=== PATIENT | female | born 1955 | race Caucasian/White ===

== ENCOUNTER 2021-02-25 15:30 | Outpatient (CLI) | payer OTHER, SELFPAY | END 2021-02-25 23:59 | disposition short-term general hospital (02) | PROVIDERS: PCP Family Medicine; Referring Provider Family Medicine; Visit Provider Family Medicine | DX: N39.0 Urinary tract infection, site not specified (principal) | CPT/HCPCS: 87086 ==

== ENCOUNTER 2021-03-05 13:06 | Outpatient (CLI) | payer OTHER, SELFPAY ==
[2021-03-05 15:18] LABS: Color, Urine Yellow (Yellow)
[2021-03-05 15:19] LABS: Glucose, Dipstick NEGATIVE (Normal); Ketone-Dipstick Negative (Negative); Leukocyte Esterase-Dipstick Negative /ul (Negative); Nitrite-Dipstick Negative (Negative); Occult Blood-Urine Negative /ul (Negative); Protein-Dipstick Negative (Negative); Urine Bilirubin Dipstick Negative (Negative); Urine Clarity Clear (Clear); Urine Urobilinogen Normal (Normal); Urine pH 6.5 (5.0 - 8.0)
== END 2021-03-05 23:59 | disposition short-term general hospital (02) ==
LOC: MTLAB 13:09
PROVIDERS: PCP Family Medicine; Referring Provider Family Medicine; Visit Provider Family Medicine
DX: N39.0 Urinary tract infection, site not specified (principal)
CPT/HCPCS: 81002; 87086

== ENCOUNTER 2021-03-09 12:22 | Outpatient (CLI) | payer OTHER, SELFPAY | END 2021-03-09 23:59 | disposition short-term general hospital (02) | LOC: LABSPEC 12:23 | PROVIDERS: PCP Family Medicine; Referring Provider Nurse Practitioner Family; Visit Provider Nurse Practitioner Family | DX: B37.3 Candidiasis of vulva and vagina (principal) | CPT/HCPCS: 87070; 87205 ==